=== PATIENT | male | born 1965 | race Caucasian/White ===

== ENCOUNTER → 2018-03-06 07:16 | Outpatient (CLI) | payer OTHER, SELFPAY ==
[2018-03-06 09:07] LABS: Add Manual Diff / Slide Review NO; Basophils Percent Auto 1.3 % (0-2); Eosinophils Percent Auto 2.4 % (2-4); Hematocrit 44.1 % (41-53); Hemoglobin 15.2 g/dL (13.5-17.5); Lymphocytes Percent Auto 37.8 % (25-40); Mean Corpuscular HGB Conc 34.4 % (30-36); Mean Corpuscular Hemoglobin 30.4 PG (26-34); Mean Corpuscular Volume 88.4 fL (80-100); Monocytes Percent Auto 8.2 % (3-14); Neutrophils Absolute Auto 2700 /uL (3000-5900); Neutrophils Percent Auto 50.3 % (50-75); Platelet Count 225 X10^3/uL (150-400); Red Blood Cell Count 4.99 X10^6/uL (4.5-5.9); Red Cell Distribution Width 13.4 % (11.6-14.8); White Blood Cell Count 5.4 X10^3/uL (4.5-11.0)
[2018-03-06 09:36] LABS: Carbon Dioxide 30 mmol/L (22-32); Chloride 102 mmol/L (98-107); HEMOLYSIS < 15 (0-50); Sodium 141 mmol/L (137-145)
== END ==
PROVIDERS: PCP Family Medicine; Visit Provider Orthopaedic Surgery
DX: M16.12 Unilateral primary osteoarthritis, left hip (principal); Z01.818 Encounter for other preprocedural examination; Z01.812 Encounter for preprocedural laboratory examination
CPT/HCPCS: 36415; 80051; 85025; 93005; 93010

== ENCOUNTER 2018-03-13 08:02 | Inpatient (IN) | payer OTHER, SELFPAY ==
[2018-02-23 08:46] VITALS: BMI 34.8
[2018-03-13] VITALS (11 sets, daily range): BP systolic 114–150; BP diastolic 57–95; PULSE 51–63; RESP 14–18; TEMP 36.1–36.9; O2SAT 93–96; BMI 34.9
--- NOTE | 2018-03-13 | DI.RAD.S_ITS ---
PROCEDURE: XR PELVIS 1-2V INDICATIONS: POST OPERATIVE TOTAL LEFT HIP TECHNIQUE: 1 view(s) of the pelvis acquired. COMPARISON: None. FINDINGS: Bones: No fractures or dislocations. No suspicious bony lesions. Left hip arthroplasty has been performed. Soft tissues: Visualized bowel gas pattern is normal. No suspicious soft tissue calcifications. IMPRESSION: Expected appearance of left hip arthroplasty. Dictated by: Maria Del Carmen Page M.D. on 03/13/2018 at 11:52 Approved by: Maria Del Carmen Page M.D. on 03/13/2018 at 11:53
[2018-03-13] MEDS: CELECOXIB 200 MG CAPSULE PO (08:56)
[2018-03-13] MEDS: ACETAMINOPHEN 325 MG TABLET 975 MG PO (08:56)
[2018-03-13] MEDS: PREGABALIN 75 MG CAPSULE PO (08:56)
--- NOTE | 2018-03-13 09:39 | PM.PREOP ---
Pre-operative Note Interval Note Pre-op Check: Yes History & Physical Reviewed by Physician Changes: No
[2018-03-13] MEDS: CEFAZOLIN VIAL 3 GM in SODIUM CHLORIDE 0.9% 100 ML 400 ML IV (10:00)
--- NOTE | 2018-03-13 10:35 | SUR.OPER ---
Lateral on padded OR bed. Gel axillary roll. Arms secured on padded armboard with pillow supporting top arm. Padded hip positioner braces x4 - anterior and posterior chest and pelvis. Additional gel pad used anterior pelvis. Gel pad under bottom RIGHT leg from knee to foot and secured with tape over sheet.
--- NOTE | 2018-03-13 10:37 | SUR.OPER ---
PRIOR TO SURGICAL PROCEDURE LET IT BE KNOWN PATIENT HAS SEVERAL BLUISH GREEN BRUISES IN VARIOUS STAGES OF HEALING NOTED ON UPPER EXTREMITIES AND ON LOWER EXTREMITIES WELL, WHICH PATIENT STATED WERE FROM ROCK CLIMBING
[2018-03-13] MEDS: BUPIVACAINE 0.5% W/ EPI (PF) VIAL 30 ML INJ (10:53)
--- NOTE | 2018-03-13 11:53 | PM.OP.1 ---
Operative Date/Time/Diagnoses Date of procedure: 03/13/18 Time of procedure: 11:53 Pre-op diagnosis: Left hip degenerative joint disease Post-op diagnosis: same Procedure & Clinicians Procedure: Left total hip arthroplasty (CPT code 33699 with event marketing assistant) Same procedure as scheduled: Yes Indications: Patient is an 53-year-old male with severe left hip DJD. The patient has pain with activities and at rest, limited ambulation and activity tolerance, difficulties with ADLs, and failure of conservative treatment. We have discussed the nature of condition, treatment options, risks and benefits, and patient elects to proceed with total hip arthroplasty and gives informed consent. Surgeon: Paul Jang Woodworking Machinist: Indu Leon Anesthesia Type: General and Spinal Operative Notes Closure Type: primary Specimen(s): none sent Implants & Drains: Acetabulum: Cheatham and Nephew R3 acetabular component size 54 mm Femoral component: Cheatham [employer] Nephew Synergy stem size 14 with standard offset Femoral head: 36 mm + 0 Oxinium Estimated Blood Loss (mL): 100 Blood products transfused: none Procedure in detail: After satisfaction induction of anesthetic, and administration of IV antibiotics, the patient was positioned in the lateral decubitus position with all bony prominences well padded and pelvic position secured using a hip stationary engineer positioning device. Left hip and lower extremity prepped and draped in the usual sterile fashion, 1st dose of intravenous tranexamic acid was administered, then a longitudinal incision was created centered over the greater trochanter and carried sharply through the skin and subcutaneous tissues down to the fascia hilda which was divided longitudinally and retracted with a Charnley retractor. External rotators visualize, cut, tagged, and retracted posteriorly, then the capsule was cut in a T-type fashion with the corners tagged and retracted. Hip was dislocated and femoral neck cut made according to preoperative templating. Acetabular retractors then placed, and the acetabular labrum and osteophytes were excised. The acetabulum was then sequentially reamed to 53 mm with an excellent circumferential ream and fit with the trial. The trial component was removed and a permanent size 54 mm Cheatham and Nephew R3 acetabular component was selected, positioned, and impacted with satisfactory position and fixation achieved. Permanent liner was then inserted with the elevated lip directed posteriorly. Soft tissue then removed off the lateral femoral neck in the lateral neck was entered using a box osteotome. T-handled reamers placed down the canal followed by sequential broaching to 14 with the final broach left in place for trial reduction which demonstrated excellent leg length, range of motion, and stability characteristics with a 36 mm +0 trial ball. The trial and broach were removed, and a permanent size 14 Cheatham and Nephew Synergy stem was selected and inserted with excellent position and fixation achieved. Another trial reduction yielded the above characteristics so the trial ball was exchanged for a permanent 36 mm +0 Oxinium ball. The hip was irrigated and reduced and excellent leg length range of motion and stability characteristics were achieved and maintained. The hip was copiously irrigated, and the capsule repaired with #2 Ethibond, and the piriformis was repaired back to the greater trochanter with the same. Fascia hilda closed with interrupted #1 Ethibond sutures, and the subcutaneous tissues were closed in 2 layers of 0 Vicryl and 2 0 Vicryl. Skin was closed with susan and sterile dressings applied. Second dose of tranexamic acid was administered intravenously, and the anesthetic was terminated. Complications: none Condition: stable Disposition: PACU Plan for aftercare: Patient will be admitted to the acute care cho, and anticipate discharge on postop day 1 or 2 with follow-up in office in 10-14 days. Outpatient physical therapy will be arranged and patient will continue to observe posterior hip precautions. Patient will continue use of postoperative Lovenox for 10 days postop.
[2018-03-13] MEDS: LACTATED RINGERS 1,000 ML 125 ML IV ×2 (12:56→20:11)
--- NOTE | 2018-03-13 15:25 | PT.IPTN ---
Current Diagnoses Unilateral primary osteoarthritis, left hip (03/13/18) Surgery Performed Operation Date: 03/13/18 10:00 Actual Procedures p Total Hip Arthroplasty(Left) - Paul Jang MD Physical Therapy Treatment Note M3 PT-IP Subjective Start: 03/13/18 16:57 Freq: NEEDED Status: Active Protocol: Document 03/13/18 16:57 MDD (Rec: 03/13/18 16:59 MDD [id number]) Subjective Physical Therapy Visit Type Type Administrative Note Visit Start Time 15:25 Visit Stop Time 15:31 Total Visit Minutes 6 Notes Attempted to see pt at above time. Pt reports continued B LE numbness, unable to actively dorsiflex L ankle. Plan to perform PT evaluation when pt no longer presenting with LE weakness/numbness. Number of GRINDING WHEEL INSPECTOR Visits 0 Therapy Pain Assessment Pain Present Pain Present Denied Pain
--- NOTE | 2018-03-13 17:49 | PT.IIE ---
Current Diagnoses Unilateral primary osteoarthritis, left hip (03/13/18) Surgery Performed Operation Date: 03/13/18 10:00 Actual Procedures p Total Hip Arthroplasty(Left) - Paul Jang MD Surgical History (Last Updated 02/23/18 @ 09:15 by Elizabeth Marc RN) History of vasectomy (Acute) Hx of discectomy (Acute) Hx of esophagogastroduodenoscopy (Acute) Hx of tonsillectomy (Acute) Medical History (Last Updated 02/23/18 @ 09:15 by Elizabeth Marc RN) Cataract of right eye (Acute) Exercise-induced asthma (Acute) GERD (gastroesophageal reflux disease) (Acute) HTN (hypertension) (Acute) Kidney stones (Acute) Low back pain (Acute) Osteoarthritis (Acute) TMJ (temporomandibular joint syndrome) (Acute) Physical Therapy Inpatient Evaluation/Re-Eval M1 PT/OT-IP Prior Functional Status Start: 03/13/18 16:57 Freq: NEEDED Status: Active Protocol: Document 03/13/18 17:35 EA (Rec: 03/13/18 17:49 EA [id number]) Medical Review Prior Functional Status Medical History Reviewed Yes Diet/Fluid Consistency Regular Communication nml Mobility and Gait independent with no AD Activities of Daily Living and IADL's independent Social History Household Members spouse children Living Arrangements House Number of Floors (Floors) Two Floors Number of Stairs To Enter/Railing? 6 stairs to enter, B railings. Pt lives on 2nd floor. 7 stairs to second floor with B railings. 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 works from home and will be available to help if needed. M2 PT-IP Current Condition Start: 03/13/18 16:57 Freq: NEEDED Status: Active Protocol: Document 03/13/18 17:35 EA (Rec: 03/13/18 17:49 EA [id number]) Physical Therapy Current Condition Current Condition Evaluation Date 03/13/18 Treatment Diagnosis S/P Left SYMONE Onset Date 03/13/18 Precautions Posterior Hip Precautions No Hip Flexion > 90 degrees No Hip Internal Rotation No Hip Adduction Lumbar Precautions Limit Bending Other Precautions pillow inbetween knees when sleeping Weight Bearing Status Weight Bearing Status Weight Bear as Tolerated M3 PT-IP Subjective Start: 03/13/18 16:57 Freq: NEEDED Status: Active Protocol: Document 03/13/18 17:35 EA (Rec: 03/13/18 17:49 EA [id number]) Subjective Physical Therapy Visit Type Type Initial Evaluation Visit Start Time 16:45 Visit Stop Time 17:30 Total Visit Minutes 45 Physical Therapy Visit Comments Patient Comments Patient would like to mobilize and transfers to chair for dinner. Therapy Pain Assessment Pain When Pain Assessed At Rest Pain Present Pain Present Pain Reported Location Left Hip Intensity 1 Description Acute M4 PT-IP Mobility and Gait Start: 03/13/18 16:57 Freq: NEEDED Status: Active Protocol: Document 03/13/18 17:35 EA (Rec: 03/13/18 17:49 EA [id number]) PT-Bed Mobility Assessment Supine to Sit Supine to Sit Standby Assistance Sit to Supine Sit to Supine Standby Assistance PT-Transfer Assessment Sit to and From Stand Sit to and from Stand Standby Assistance Equipment Transfer Assistive Device Gait Belt Front Wheeled Walker Transfers Transfer Destination Bed Chair Toilet Transfer Technique Stepping Transfer Ability Level of Assist Standby Assistance Comments Mobility Comments Patient requires verbal cues initially. Gait Assessment Gait Gait Assistance Required: Standby Assistance Able to Maintain Weight Bearing Status Yes During Gait Assistive Devices Assistive Device Gait Belt Front Wheeled Walker Gait Deviations General Gait Pattern Antalgic PT-Balance Assessment Sitting Balance and Reactions Static Sitting Balance Ability Normal Dynamic Sitting Balance Ability Normal Standing Balance and Reactions Static Standing Balance Ability Normal Dynamic Standing Balance Ability Good M5 PT-IP Objective Assessments Start: 03/13/18 16:57 Freq: NEEDED Status: Active Protocol: Document 03/13/18 17:35 EA (Rec: 03/13/18 17:49 EA [id number]) Orientation Orientation/Cognition Level of Alertness Alert Orientation Birthday Date Year Language Function Ability No Deficits Noted Safety Awareness Understands Safety Issues Memory Description No Deficits Noted Gross Range of Motion Upper Extremity ROM Assessment Within Functional Limits Lower Extremity ROM Assessment Within Functional Limits Impairments Left hip not tested due to pre -caution but with a at least functional for transfers and mobility. Strength Upper Extremity Strength Assessment Within Functional Limits Lower Extremity Strength Assessment Within Functional Limits Hip Not assessed due to preacution with with at 3/5 Coordination Assessment Gross Coordination Gross Coordination WNL Sensation Assessment Sensation Gross Sensation Left UE Impaired Comments Sensation Comments 20% deficits to light touch and pain. Proprioception are WFL M6 PT-IP Treatment Start: 03/13/18 16:57 Freq: NEEDED Status: Active Protocol: Document 03/13/18 17:35 EA (Rec: 03/13/18 17:49 EA [id number]) Physical Therapy Treatment Exercises Exercises Ankle Pumps Gluteal Sets Quad Sets Heel Slides Education Education Provided Precautions Weight Bearing Status Post-Op Packet Safety M7 PT-IP Assessment and Plan Start: 03/13/18 16:57 Freq: NEEDED Status: Active Protocol: Document 03/13/18 17:35 EA (Rec: 03/13/18 17:49 EA [id number]) PT Summary Assessment and Plan Potential Rehabilitation Potential Excellent Status of Condition at Evaluation Stable Summary Impairments Pain ROM Strength Activity Tolerance Progress Towards Goals Progressing Toward Goals Assessment Summary Patient demonstrates decreased activity tolerance due to pain and weakness to left LE; requires SBA assistance in all transfers for safety at this time. Patient would benefit with skilled PT to practice distance ambulation and stairs prior to discharge tomorrow or when medically stable. Patient exhibits high potential for recovery and will likely erach indep functional goals prior to discharge. Goals Bed Mobility Goal Independent Transfer Goal Independent Gait Goal Independent Gait Distance 50 ft Days to Meet Goals 1 Frequency of Treatment Frequency Of Treatment Once a Day Treatment Plan Physical Therapy Treatment Plan Bed Mobility Training Transfer Training Gait Training Therapeutic Exercise Balance Retraining Post Op Education Discharge Planning Hot or Cold Pack Other Recommendations and Next Treatment Stairs and ambulation Focus Recommendations To Nursing Amount of Assist Needed Standby Assistance Discharge Recommendations PT Discharge Recommendations Home with Assistance Other Discharge Recommendations Out patient PT
[2018-03-13] MEDS: ASPIRIN EC 81 MG TABLET PO (21:05)
--- NOTE | 2018-03-13 21:46 | PC.NURSE ---
Pt A&Ox3, continues to be calm and cooperative with care. Makes needs known to staff. 96% RA, denies SOB, LS clear. Denies nausea. Bulky gauze dressing to L hip CDI. Calf SCD's in place, pt still stating slight numbness in his left foot, pt education done on ankle waves. Pt education done on use of I.S., breath holding ability good, able to get to 1500 ml. Pt denies pain in his hip. Pt has voided using urinal, clear yellow urine. Up OOB with SBA assistance FWW. Call light in place, pt calling appropriately.
[2018-03-13] MEDS: hydrOXYzine pamoate 25 MG CAPSULE PO (22:42)
[2018-03-14 00:30] VITALS: BP 131/79; PULSE 61; RESP 16; TEMP 36.7; O2SAT 95
[2018-03-14] MEDS: CEFAZOLIN 1 GM/50 ML FROZ.PIGGY IV ×2 (01:12→09:37)
[2018-03-14] MEDS: diphenhydrAMINE 50 MG CAPSULE PO (01:38)
[2018-03-14 03:36] VITALS: BP 149/77; PULSE 53; RESP 16; TEMP 36.6; O2SAT 97
[2018-03-14 06:13] LABS: Hematocrit 39.2 % (41-53); Hemoglobin 13.3 g/dL (13.5-17.5)
[2018-03-14 06:19] VITALS: BP 131/74; PULSE 57; RESP 16; TEMP 36.7
[2018-03-14] MEDS: HYDROCODONE/ACET 5/325 TABLET 1 TAB PO (07:39)
[2018-03-14 07:42] VITALS: BP 118/67; PULSE 51; RESP 16; TEMP 36.4; O2SAT 100
--- NOTE | 2018-03-14 08:42 | PM.DS.1 ---
History of Present Illness Date Patient Seen: 03/14/18 Time Patient Seen: 08:31 Chief complaint: [id number] LEFT TOTAL HIP ARTHROPLASTY Narrative: Patient is seen bedside status post left SYMONE postop day 1. He is doing well no complaints of nausea vomiting shortness of breath or chest pain. His pain is well controlled however he is having some itching from the narcotics. No rashes noted. Would like to go home today. Discharge Providers Date of admission: 03/13/18 08:02 Primary care physician: Ofelia Bermudez MD Consults: 03/13/18 12:23 Consult to Discharge Planning Routine Comment: Consult to Physical Therapy Evaluate & Treat Comment: Physician Instructions: post op SYMONE protocol Consult to Respiratory Therapy Evaluate & Treat Comment: Physician Instructions: Evaluate and treat Discharge provider: Dariana Salvador PA-C Summary Discharge Diagnosis: Left hip osteoarthritis Hospital Course: Patient was admitted status post left SYMONE with Dr. Jang on 03/13/2018. Patient tolerated the procedure well with no major complications. He is transferred to the acute care floor where he is seen by Physical therapy recommended patient be discharged home with outpatient PT. He was stable and ready for discharge on 03/14/2018. He was discharged with oxycodone for pain as well as Lovenox for DVT prophylaxis and Vistaril to help with the itching from narcotics. He will follow up the office as previously scheduled. Exam Vital Signs (past 8 hours): - 03/14/18 03:36 03/14/18 06:19 03/14/18 07:42 Temperature 97.8 F 98.0 F 97.5 F L Pulse Rate 53 L 57 L 51 L Respiratory Rate 16 16 16 Blood Pressure 149/77 H 131/74 H 118/67 Pulse Oximetry 97 100 Oxygen Delivery Method Room Air Oxygen Flow Rate 0 Narrative Exam Narrative: Patient well-developed well-nourished in no acute distress. Patient alert oriented x3. Examination patient's left hip dressing is clean dry and intact with no signs of discharge. He has full range of motion of the knee and ankle. His calf is soft and compressible and he is neurovascularly intact in the left lower extremity. Objective Labs Result Diagrams: 03/14/18 05:33 Labs: Laboratory Results - last 24 hr 03/14/18 05:33 Hgb 13.3 L Hct 39.2 L Discharge Plan Discharge Plan Patient Disposition: Home, Self-Care Discharge Med Rec/Prescriptions Prescriptions: New aspirin 81 mg Tablet,Delayed Release (Dr/Ec) 81 mg PO BID Qty: 0 RF: 0 enoxaparin [Lovenox] 40 mg/0.4 mL Syringe 40 mg Sub-Q DAILY Qty: 4 RF: 0 hydrocodone-acetaminophen 5-325 mg Tablet 1 tab PO Q4HR PRN (Reason: Pain, Moderate (4-6)) Qty: 0 RF: 0 hydroxyzine pamoate 25 mg Capsule 25 mg PO Q6HR PRN (Reason: Spasms) Qty: 0 RF: 0 Continue pantoprazole 40 mg Tablet,Delayed Release (Dr/Ec) 40 mg PO DAILY RF: 0 lisinopril 10 mg Tablet 10 mg PO QAM RF: 0 naproxen sodium [Aleve] 220 mg Capsule 2 tab PO BEDTIME PRN (Reason: pain) RF: 0 albuterol sulfate [Proventil HFA] 90 MCG/PUFF HFA aerosol inhaler 1 - 2 puff IH Q4HP PRN (Reason: exercised induced asthma) RF: 0 Follow up/Referrals: [facility] [Provider Group] - 03/20/18 10:40 am (With Jamir Juarez PA-C at the [facility]) Provider Discharge Instructions Diet: Diet as Tolerated Activity: WBAT, use walker to ambulate until cleared by PT. Follow posterior hip precautions Cold/Heat Therapy: Ice for 20 minutes at a time at least hourly Wound Care Report to your healthcare provider any signs of infection, such as:: chills, fever, night sweats, increased pain and unusual drainage Dressing: Keep dressing clean, dry, and intact until follow up visit. Visit Report/Discharge Packet Instructions: DI for Hip Replacement Discharge Data Primary Care Provider: Ofelia Bermudez Attending Provider: Paul Jang Admit Date/Time: 03/13/18 08:02 Quality VTE Deep Vein Thrombosis/Pulmonary Embolism Present on Admission: No
--- NOTE | 2018-03-14 09:18 | PT.IPTN ---
Current Diagnoses Unilateral primary osteoarthritis, left hip (03/13/18) Surgery Performed Operation Date: 03/13/18 10:00 Actual Procedures p Total Hip Arthroplasty(Left) - Paul Jang MD Physical Therapy Treatment Note M2 PT-IP Current Condition Start: 03/13/18 16:57 Freq: NEEDED Status: Active Protocol: Document 03/13/18 17:35 EA (Rec: 03/13/18 17:49 EA [id number]) Physical Therapy Current Condition Current Condition Evaluation Date 03/13/18 Treatment Diagnosis S/P Left SYMONE Onset Date 03/13/18 Precautions Posterior Hip Precautions No Hip Flexion > 90 degrees No Hip Internal Rotation No Hip Adduction Lumbar Precautions Limit Bending Other Precautions pillow inbetween knees when sleeping Weight Bearing Status Weight Bearing Status Weight Bear as Tolerated M3 PT-IP Subjective Start: 03/13/18 16:57 Freq: NEEDED Status: Active Protocol: Document 03/14/18 08:45 AMB (Rec: 03/14/18 09:18 AMB [email or web address]) Subjective Physical Therapy Visit Type Type Initial Evaluation Visit Start Time 08:30 Visit Stop Time 09:00 Total Visit Minutes 30 Number of ADOLESCENT MEDICINE SPECIALIST Visits 0 Physical Therapy Visit Comments Patient Comments Pt denies pain/ dizziness, able to state 90 degree flexion precaution, has outpatient PT set up. Therapy Pain Assessment Pain When Pain Assessed At Rest Pain Present Pain Present Denied Pain M4 PT-IP Mobility and Gait Start: 03/13/18 16:57 Freq: NEEDED Status: Active Protocol: Document 03/14/18 08:45 AMB (Rec: 03/14/18 09:18 AMB [email or web address]) PT-Transfer Assessment Sit to and From Stand Sit to and from Stand Standby Assistance Equipment Transfer Assistive Device Gait Belt 4 Wheeled Walker Transfers Transfer Destination Chair Transfer Ability Level of Assist Standby Assistance Gait Assessment Gait Gait Assistance Required: Standby Assistance Distance (Feet) (feet) 150 Able to Maintain Weight Bearing Status Yes During Gait Assistive Devices Assistive Device Gait Belt 4 Wheeled Walker Gait Deviations General Gait Pattern Antalgic Wide Based Gait Factors Limiting Gait Function Factors Limiting Gait Function Limited Range of Motion Pain Comments Gait Comments Pt initially with antalgic gait better with cueing. Stair Climbing Assessment Evaluation Level of Assist On Stairs Contact Guard Assistance Devices Stair Climbing Assistive Devices Left Railing Right Railing Technique/Endurance Stair Climbing Direction Ascend and Descend Stair Climbing Technique Step to Step Number of Steps Climbed 3 Query Text: Stair Climbing Set # Repetitions (reps) 3 Comments Stair Climbing Comments Pt initially with CGA then SBA , instructed how should assist. M5 PT-IP Objective Assessments Start: 03/13/18 16:57 Freq: NEEDED Status: Active Protocol: Document 03/13/18 17:35 EA (Rec: 03/13/18 17:49 EA [id number]) Orientation Orientation/Cognition Level of Alertness Alert Orientation Birthday Date Year Language Function Ability No Deficits Noted Safety Awareness Understands Safety Issues Memory Description No Deficits Noted Gross Range of Motion Upper Extremity ROM Assessment Within Functional Limits Lower Extremity ROM Assessment Within Functional Limits Impairments Left hip not tested due to pre -caution but with a at least functional for transfers and mobility. Strength Upper Extremity Strength Assessment Within Functional Limits Lower Extremity Strength Assessment Within Functional Limits Hip Not assessed due to preacution with with at 3/5 Coordination Assessment Gross Coordination Gross Coordination WNL Sensation Assessment Sensation Gross Sensation Left UE Impaired Comments Sensation Comments 20% deficits to light touch and pain. Proprioception are WFL M6 PT-IP Treatment Start: 03/13/18 16:57 Freq: NEEDED Status: Active Protocol: Document 03/13/18 17:35 EA (Rec: 03/13/18 17:49 EA [id number]) Physical Therapy Treatment Exercises Exercises Ankle Pumps Gluteal Sets Quad Sets Heel Slides Education Education Provided Precautions Weight Bearing Status Post-Op Packet Safety M7 PT-IP Assessment and Plan Start: 03/13/18 16:57 Freq: NEEDED Status: Active Protocol: Document 03/14/18 08:45 AMB (Rec: 03/14/18 09:18 AMB [email or web address]) PT Summary Assessment and Plan Summary Assessment Summary Pt was able to ambulate and ascend descend stairs safely. Pt needed cueing on hip precautions. He has appropriate help at home. Discussed car transfer, avoiding positions that break hip precautions. Pt is d/dolores from PT at this time, as he has met his goals. Recommendations To Nursing Amount of Assist Needed Standby Assistance Discharge Recommendations PT Discharge Recommendations Home with Assistance Other Discharge Recommendations Out patient PT
[2018-03-14] MEDS: ENOXAPARIN 40 MG/0.4 ML SYRINGE SUBCUT (09:34)
[2018-03-14] MEDS: PANTOPRAZOLE 40 MG TABLET PO (09:36)
[2018-03-14] MEDS: ASPIRIN EC 81 MG TABLET PO (09:37)
[2018-03-14] MEDS: SODIUM CHLORIDE 0.9% FLUSH 10 ML IV (09:44)
[2018-03-14] MEDS: hydrOXYzine pamoate 25 MG CAPSULE PO (09:45)
--- NOTE | 2018-03-14 10:47 | CM.DANOTE ---
Discharge Planning/Care Management DCP: assessment: case received, ERM reviewed and met with pt at 0800. Introduced self and role. Pt is a 53 year old male who admitted yesterday for a planned L SYMONE. Surgeon: Dr. Jang. PCP: Ofelia Bermudez Payer: Sal Pt identifies his d/c plan as home today with his 's support. At time of the discussion he had worked briefly with PT just after surgery and mobilized bed to chair. Pt was scheduled to see PT again this morning. Note now that PT did see pt and d/c'd him from further therapy noting he was safe for home with 's supportive care. Ortho PA has deemed him stable for home today. Will follow prn until pt leaves. CM Discharge Assessment Start: 03/14/18 10:42 Freq: Status: Active Protocol: Document 03/14/18 10:45 ITV (Rec: 03/14/18 10:47 ITV [id number]) Discharge Planning Assessment History Provided By Patient Medical Record Prior Living Arrangements House Household Members spouse children Independent with ADL's Yes Is patient alert and oriented? Yes DME Already Rented / Owned FWW / Walker Comment 4ww Discharge Plan Home Transportation Arrangement to pick him up. He is ok' d for d/c home today and with outpt PT (set up with [facility] in [facility] per pt.) Review Status In Process Next Review Type Continued Stay Review
--- NOTE | 2018-03-14 11:11 | PC.NURSE ---
Anton was disch. in stable condition with spouse to home. Disch. via w.chair to POV. Bulky drsg. L hip removed and new Coversite drsg. applied prior to disch. Suture line intact and clean with well-approximated edges and ecchymosis surrounding entire suture line. VSS. AM dose of Lisinopril held as BP was in low range. Anton is taking oxycodone for pain with good control. Vistaril given for c/o itching. Anton is a [employer] pt. and he and his spouse state they understand all disch. instructions and teaching.
== END 2018-03-14 11:30 | disposition home or self-care (01) | DRG 470 ==
PROVIDERS: Admitting Provider Orthopaedic Surgery; PCP Family Medicine; Referring Provider Family Medicine; Visit Provider Orthopaedic Surgery
PROC: 0SRB0JZ Replacement of Left Hip Joint with Synthetic Substitute, Open Approach (ICD-10-PCS; CPT 27130; principal; 2018-03-13 10:00)
DX: M16.12 Unilateral primary osteoarthritis, left hip (principal); K21.9 Gastro-esophageal reflux disease without esophagitis; I10 Essential (primary) hypertension; L29.9 Pruritus, unspecified; T40.605A Adverse effect of unspecified narcotics, initial encounter
CPT/HCPCS: 36415; 72170; 85014; 85018; 97116; 97530; 97535; C1776; J0690; J1100; J1650; J2250; J2274; J2704; J3010